=== PATIENT | female | born 1960 | race Caucasian/White ===

== ENCOUNTER 2016-03-14 07:30 | Inpatient (IN) ==
[2016-03-10 15:10] LABS: Appearance,Urine HAZY; Bilirubin,Urine NEG (NEG); Color,Urine YELLOW; Glucose,Urine (UA) NEGATIVE (NEG); Leukocyte Esterase,Urine NEG /uL (NEG); Nitrate,Urine NEG (NEG); Protein,Urine NEG (NEG); Specific Gravity,Urine 1.008 (1.000-1.035); Urine Blood NEG mg/dL (<0.03); Urobilinogen,Urine NEG (NEG)
[2016-03-10 15:35] LABS: Basophils # (Auto) 0.1 K/mcL (0.0-0.3); Basophils % (Auto) 0.7 % (0.0-2.0); Eosinophils # (Auto) 0.3 K/mcL (0.0-0.7); Eosinophils % (Auto) 3.6 % (0.0-7.0); Granulocytes % (Auto) 50.6 % (38.0-78.0); Lymphocytes # (Auto) 3.2 K/mcL (1.5-4.8); Lymphocytes % (Auto) 38.9 % (15.5-49.0); Mean Cell Volume 93.7 fL (80.0-100.0); Mean Corpuscular HGB Conc 33.1 g/dL (31.0-36.0); Monocytes # (Auto) 0.5 K/mcL (0.1-0.9); Monocytes % (Auto) 6.2 % (1.0-9.0); Platelet Count 314 K/mcL (140-440); RBC 4.14 M/mcL (4.00-5.20); Red Cell Distribution Width 12.7 % (11.5-14.5)
[2016-03-10 15:47] LABS: Blood Urea Nitrogen 20 mg/dl (6-20)
[~2016-03-14 07:30] MED LIST: ACETAMINOPHEN 500 MG TABLET PO SCH; CLINDAMYCIN 900 MG in DEXTROSE 5% IN WATER 50 ML IV SCH; KETOROLAC 30 MG, ROPIVACAINE HCL/PF 49.5 ML, EPINEPHrine 0.5 MG, 0.9 % SODIUM CHLORIDE ... IJ ONE; PREGABALIN 150 MG CAPSULE PO SCH; oxyCODONE 10 MG TAB.ER.12H PO SCH
[2016-03-14] MEDS ORDERED: LIDOCAINE HCL/PF 100 MG/5 ML SYRINGE IV ONE (13:05)
[2016-03-14] MEDS ORDERED: ONDANSETRON 4 MG/2 ML VIAL IV ONE (13:05)
[2016-03-14] MEDS ORDERED: ePHEDrine 50 MG/ML AMPUL IV ONE (13:05)
[2016-03-14] MEDS ORDERED: PROPOFOL 200 MG/20 ML VIAL IV ONE (13:05)
[2016-03-14] MEDS ORDERED: ROPIVACAINE HCL/PF 30 ML VIAL IJ ONE (13:05)
[2016-03-14] MEDS ORDERED: DEXAMETHASONE 10 MG/ML VIAL IV ONE (13:05)
[2016-03-14] MEDS ORDERED: PHENYLEPHRINE 10 MG/ML VIAL IV ONE (13:05)
[2016-03-14] MEDS ORDERED: TRANEXAMIC ACID 1,000 MG/10 ML VIAL IV ONE ×2 (13:05→14:35)
[2016-03-14] MEDS ORDERED: MIDAZOLAM 5 MG/5 ML VIAL IV ONE (13:05)
[2016-03-14] MEDS ORDERED: SUCCINYLCHOLINE 20 MG/ML ML IV ONE (13:05)
[2016-03-14] MEDS ORDERED: GENTAMICIN SULFATE 800 MG/20 ML VIAL IR ONE (13:41)
[2016-03-14] MEDS ORDERED: HYDROmorphone 2 MG/ML SYRINGE IV PRN ×2 (13:52→14:35)
[2016-03-14] MEDS ORDERED: FLUMAZENIL 0.1 MG/ML ML IV PRN (13:52)
[2016-03-14] MEDS ORDERED: NALOXONE HCL 0.4 MG/ML VIAL IV PRN (13:52)
[2016-03-14] MEDS ORDERED: METHOCARBAMOL 1,000 MG/10 ML VIAL IV PRN (13:52)
[2016-03-14] MEDS ORDERED: BENZOCAINE/MENTHOL 1 LOZENGE PO PRN ×2 (13:52→14:35)
[2016-03-14] MEDS ORDERED: PROMETHAZINE 25 MG/ML VIAL IV PRN (13:52)
[2016-03-14] MEDS ORDERED: ONDANSETRON 4 MG/2 ML VIAL IV PRN ×2 (13:52→14:35)
[2016-03-14] MEDS ORDERED: LACTATED RINGERS 250 ML IV PRN (13:52)
[2016-03-14] MEDS ORDERED: fentaNYL 100 MCG/2 ML VIAL IV PRN (13:52)
[2016-03-14] MEDS ORDERED: diphenhydrAMINE 50 MG/ML VIAL IV PRN (13:52)
[2016-03-14] MEDS ORDERED: METOCLOPRAMIDE 10 MG/2 ML VIAL IV PRN (13:52)
[2016-03-14] MEDS ORDERED: ePHEDrine 50 MG/ML AMPUL IV PRN (13:52)
[2016-03-14] MEDS ORDERED: MEPERIDINE 25 MG/ML SYRINGE IV PRN (13:52)
[2016-03-14] MEDS ORDERED: IPRATROPIUM/ALBUTEROL 3 ML AMPUL.NEB NEB PRN (13:52)
[2016-03-14] MEDS ORDERED: LACTATED RINGERS 1,000 ML IV SCH (14:00)
[2016-03-14] MEDS ORDERED: FLEETS ADULT ENEMA PR PRN (14:35)
[2016-03-14] MEDS ORDERED: MAGNESIUM HYDROXIDE 30 ML ORAL.SUSP PO PRN (14:35)
[2016-03-14] MEDS ORDERED: POLYETHYLENE GLYCOL 3350 17 GM PACKET PO PRN (14:35)
[2016-03-14] MEDS ORDERED: BISACODYL 10 MG SUPP.RECT PR PRN (14:35)
[2016-03-14] MEDS ORDERED: ACETAMINOPHEN 325 MG TABLET PO PRN (14:35)
[2016-03-14] MEDS ORDERED: TEMAZEPAM 15 MG CAPSULE PO PRN (14:35)
--- NOTE | 2016-03-14 14:43 | Brief Operative Note ---
Date of procedure: 03/14/16 Pre-op diagnosis: left knee djd Post-op diagnosis: same Procedure: left total knee Grafts/Implants: Yes Anesthesia: GETA Complications Description: 03/14/16 14:43 none Surgeon: Rogelio Montoya Electron Gun Inspector: Zander Daly Estimated blood loss (cc): 20 Tourniquet Time (Minutes): 43 Specimens Removed/Pathology: none sent Condition: stable Disposition: PACU
--- NOTE | 2016-03-14 15:31 | XRay Report ---
CLINICAL INFORMATION: Postsurgical follow-up TECHNIQUE: AP and crosstable lateral left knee COMPARISON: Preoperative evaluation dated 12/06/2015 FINDINGS: Status post left total knee arthroplasty. Alignment is anatomic. There is soft tissue abnormality anteriorly which is postsurgical. IMPRESSION: Status post left total knee arthroplasty. Interpreted and Authenticated by: Aden Johnston 03/14/16
--- NOTE | 2016-03-14 15:46 | Operative Note ---
DATE OF OPERATION: 03/14/2016 PREOPERATIVE DIAGNOSIS: Left knee degenerative arthritis. POSTOPERATIVE DIAGNOSIS: Left knee degenerative arthritis. PROCEDURE: Left total knee arthroplasty. SURGEON: Rogelio Montoya MD AIR CONDITIONING SERVICE TECHNICIAN: Zander Daly PA-C ANESTHESIA: General LMA anesthesia. COMPLICATIONS: None. IMPLANTS: A size 3 femur and size 3 tibial baseplate with a 9 mm poly insert, small 50 mm stem was also added to the baseplate for stability, a 33 mm patellar button 9 mm thick. DESCRIPTION OF PROCEDURE: Patient was brought to the operating room and put to sleep with general LMA anesthesia. Once asleep, the patient had the left leg sterilely prepped and draped in the usual sterile fashion. Once done, we confirmed the operative site, preop antibiotics and tranexamic acid had been given. We placed Ioban over the skin and made a midline incision, and a mid vastus approach was performed. Once this was done, we then confirmed that the knee was severely worn in all three compartments. The ACL had been ruptured as well. Once all this was discovered, we proceeded with a total knee arthroplasty and placed an intramedullary guide hole into the tibia and the femur, used an intramedullary guide cheng to make our distal femoral cut and sized the femur to a size 3 and made our chamfer cuts. Once this was done it was set at 5 degrees of valgus and 3 degrees of flexion. Tibial baseplate was cut at neutral, or at 90 degrees and cut 2 mm below the medial compartment. Once this was done, we irrigated thoroughly and punched into place a size 3 tibial baseplate, removed osteophytes posteriorly and removed the remnants of the meniscus. Once this was done, we then irrigated thoroughly and then the femur was tapped into place size 3. The holes were drilled for the peg holes. We then prepared the patella. Total thickness was 24 mm. This was cut to 15 and the 9 mm poly was placed on to the patella. This tracked very well. The knee was stable throughout with 1 mm of play flexion, extension and mid flexion. We irrigated thoroughly. We kept the posterior cruciate ligament which was intact. We cemented into place a size 3 tibial baseplate and size 3 femur, 9 mm poly was inserted with a deep dish. A 33 mm patellar button was cemented into place and excess cement was removed. We irrigated thoroughly, kept the knee at 45 degrees until cement was dry. Once this was done, we then took the knee through range of motion once more. We closed the mid vastus approach with #2 FiberWire and #2 double-armed Maxon stitch and this was interlocked and the skin was closed with 2-0 Vicryls and woodrow. The patient tolerated this well. Tourniquet deflated at approximately 43 minutes. RBTom:frandy Job ID: [id number] Doc ID: [id number] Rogelio Montoya MD
[2016-03-14] MEDS: PROMETHAZINE 25 MG/ML VIAL IM ONE ×2 (15:59→16:11)
[2016-03-14] MEDS: MEPERIDINE 50 MG/ML SYRINGE IM ONE ×2 (15:59→16:10)
[2016-03-14] MEDS: KETOROLAC 15 MG/ML VIAL IV SCH (16:58)
[2016-03-14] MEDS: 0.45 % SODIUM CHLORIDE 1,000 ML IV SCH (17:05)
[2016-03-14] MEDS: DOCUSATE SODIUM 100 MG CAPSULE PO SCH (20:55)
[2016-03-14] MEDS: CLINDAMYCIN 900 MG in DEXTROSE 5% IN WATER 50 ML IV SCH (20:55)
[2016-03-14] MEDS: ASPIRIN 325 MG ENTERIC COATED TABLET PO SCH (20:55)
[2016-03-14] MEDS: HYDROcodone/APAP 10/325MG TABLET PO PRN (20:56)
[2016-03-14] MEDS: INSULIN LISPRO 1 UNIT/0.01 ML UNIT SQ SCH ×2 (21:00→21:05)
[2016-03-14] MEDS: 0.9 % SODIUM CHLORIDE 10 ML SYRINGE IV SCH (21:00)
[2016-03-14] MEDS ORDERED: PRAVASTATIN 20 MG TABLET PO SCH (21:00)
[2016-03-14] MEDS ORDERED: SENNOSIDES 1 TABLET PO SCH (21:00)
[2016-03-14] MEDS ORDERED: INSULIN GLARGINE, HUMAN 1 UNIT/0.01 ML SQ SCH ×2 (21:00)
[2016-03-15] MEDS: KETOROLAC 15 MG/ML VIAL IV SCH ×3 (00:47→11:41)
[2016-03-15] MEDS: HYDROcodone/APAP 10/325MG TABLET PO PRN ×4 (00:48→15:47)
[2016-03-15] MEDS: CLINDAMYCIN 900 MG in DEXTROSE 5% IN WATER 50 ML IV SCH (05:57)
[2016-03-15] MEDS: 0.45 % SODIUM CHLORIDE 1,000 ML IV SCH ×2 (05:58→07:47)
[2016-03-15] MEDS: 0.9 % SODIUM CHLORIDE 10 ML SYRINGE IV SCH ×2 (05:58→14:22)
[2016-03-15] MEDS ORDERED: LEVOTHYROXINE 100 MCG TABLET PO SCH (07:30)
--- NOTE | 2016-03-15 07:38 | Orthopedic Progress Note ---
Subjective Patient information: Note initiated : 03/15/16 at 7:38 am Service Date, if different from initiated Date: [] Patient: Sheila Dubois 55 y/o F admitted on 03/14/16 for Left Total Knee Arthroplasty. Chief Complaint: [Pt is stable this morning on post operative day 1 without any significant concerns or complaints. Patients vital signs have remained stable. Patients dressing is dry and exhibits a grossly intact neurovascular and neuromotor exam. Patients 10 point ROS is otherwise negative. ] Objective Vital signs: Vital Signs Temp Pulse Pulse Resp BP Pulse Ox 03/15/16 07:31 84 12 95 03/15/16 07:09 97.7 F 79 16 104/60 95 03/15/16 03:20 97.8 F 81 12 107/47 92 03/15/16 00:00 97.8 F 89 12 118/51 94 03/14/16 22:35 91 03/14/16 20:00 97.4 F L 91 H 12 124/55 99 03/14/16 18:09 84 98/60 95 03/14/16 17:54 89 94/56 97 03/14/16 17:52 93 H 89/50 94 03/14/16 17:37 90 94/57 96 03/14/16 17:23 105 H 100/50 99 03/14/16 17:07 89 106/67 97 03/14/16 16:52 82 94/57 95 03/14/16 16:37 84 88/52 97 03/14/16 16:22 87 89/49 98 03/14/16 15:52 85 98/60 93 03/14/16 15:35 97.1 F L 86 20 104/42 96 03/14/16 15:30 84 16 107/40 95 03/14/16 15:26 85 19 107/47 96 03/14/16 15:22 85 23 86/68 96 03/14/16 15:15 86 19 98/37 97 03/14/16 15:10 84 19 113/56 98 03/14/16 15:05 86 16 96/37 99 03/14/16 15:00 97.6 F 87 16 113/65 100 03/14/16 09:02 96.8 F L 75 20 131/49 96 03/14/16 08:20 96.8 F L 75 20 131/43 96 Intake and Output 03/14/16 03/15/16 03/15/16 21:59 05:59 13:59 Intake Total 2776 / 2776 1350 / 1350 Output Total 600 / 600 100 / 100 300 / 300 Balance 217 / 2176 1250 / 1250 -300 / -300 Intake: IV 2055 1000 / 1000 Sodium Chloride 0.45% 1, 1999 / 1999 1000 / 1000 000 ml @ 125 mls/hr IV . Q8H VICK Rx#:[id number] Dextrose 5% in Water 50 56 / 56 ml @ 100 mls/hr IV Q8H VICK with Cleocin 900 mg Rx#:[id number] Oral 720 / 720 350 / 350 Output: Void Amount 600 / 600 100 / 100 300 / 300 Other: # Voids 1 Weight 250 lb 8 oz Intake & Output: Intake & Output 03/14/16 03/15/16 03/15/16 21:59 05:59 13:59 Intake Total 2776 / 2776 1350 / 1350 Output Total 600 / 600 100 / 100 300 / 300 Balance 2175 / 2176 1250 / 1250 -300 / -300 Weight 250 lb 8 oz Intake: IV 2055 1000 / 1000 Sodium Chloride 0.45% 1, 1999 / 1999 1000 / 1000 000 ml @ 125 mls/hr IV . Q8H VICK Rx#:[id number] Dextrose 5% in Water 50 56 / 56 ml @ 100 mls/hr IV Q8H VICK with Cleocin 900 mg Rx#:[id number] Oral 720 / 720 350 / 350 Output: Void Amount 600 / 600 100 / 100 300 / 300 Other: # Voids 1 Incision: Yes healing Incision clean and dry: Yes Dressing: Yes clean, Yes dry Weight bearing status: full Neurological exam IM: Yes motor sensory intact, Yes neurovascular intact Extremities exam IM: Yes Foot pink and warm, Yes neurovascular intact - Labs CBC & BMP: 03/15/16 05:05 03/10/16 13:41 Labs: Orthopedic Labs 03/10/16 13:41 PT 12.9 INR 1.0 APTT 32 03/15/16 03/10/16 05:05 13:05 Hgb 12.8 Hct 31.2 L 38.8 Assessment and Plan (1) Hx of total knee arthroplasty Patient has been educated regarding wound care and dressings, follow up recommendations, and medication use. We will f/u with the patient within 2-3 weeks for wound check. Status: Acute
--- NOTE | 2016-03-15 07:41 | Discharge Summary ---
Ortho Discharge - TKA - Patient Instructions Diet: Regular Diet Activity: activity as tolerated, weight bearing as tolerated Total Knee Protocol: For Total Knee: Start ROM YESSI with stationary bike or rocking chair. Work on gaining full extension of knee. Posterior dislocation precautions provided. Hip abductor strengthening and gait training instructions provided. Apply Cryocuff as instructed. Dressing Care: May shower in 2 days Patient Education: Total Knee Replacement (DC) - Problem Maintenance (1) Hx of total knee arthroplasty Status: Acute - Follow Up Plan Follow Up Appointments: Rogelio Montoya MD [Physician] - 03/29/16 9:20 am Disposition: Home, Self-Care Prognosis: Good Rehab Potential: Good I certify that the patient requires SNF services: No Overall status at discharge: patient is progressing back to baseline - Orders For Discharge Prescriptions: Aspirin [Ecotrin] 325 mg PO BID #60 tab.ec Docusate Sodium [Colace] 100 mg PO BID #60 capsule HYDROcodone/APAP 10/325MG [[place] 10/325Mg] 1 - 2 tab PO Q4HP PRN #90 tablet PRN Reason: Pain
[2016-03-15] MEDS: ASPIRIN 325 MG ENTERIC COATED TABLET PO SCH (08:58)
[2016-03-15] MEDS: DOCUSATE SODIUM 100 MG CAPSULE PO SCH (08:58)
[2016-03-15] MEDS ORDERED: ZEA PO SCH (09:00)
[2016-03-15] MEDS ORDERED: EPA PO SCH (09:00)
[2016-03-15] MEDS ORDERED: DHA PO SCH (09:00)
[2016-03-15] MEDS ORDERED: [UNRECOGNIZED DRUG - OTHER] PO SCH (09:00)
[2016-03-15] MEDS ORDERED: HYDROCHLOROTHIAZIDE 12.5 MG CAPSULE PO SCH (09:00)
[2016-03-15] MEDS ORDERED: CALCIUM W/VIT D3 500 MG TABLET PO SCH (09:00)
[2016-03-15] MEDS ORDERED: LISINOPRIL 20 MG TABLET PO SCH (09:00)
[2016-03-15] MEDS: INSULIN LISPRO 1 UNIT/0.01 ML UNIT SQ SCH ×2 (09:00→12:50)
[2016-03-15] MEDS ORDERED: LUT PO SCH (09:00)
[2016-03-15] MEDS ORDERED: VITAMIN B COMPLEX 1 CAPSULE PO SCH (09:00)
[2016-03-15] MEDS ORDERED: ANTIOX PO SCH (09:00)
[2016-03-16] MEDS ORDERED: MELOXICAM 7.5 MG TABLET PO SCH (09:00)
== END 2016-03-15 16:15 | disposition home or self-care (01) | DRG 470 ==
LOC: MEDSUR 08:20
PROVIDERS: ADMIT Orthopaedic Surgery; ATTEND Orthopaedic Surgery